=== PATIENT | female | born 1975 | race African-American/Black ===

== ENCOUNTER 2020-09-27 09:01 | Emergency (ER) | payer OTHER ==
[~2020-09-27] VITALS: Ht 172.7 cm; Wt 66.2 kg
[2020-09-27 09:02] VITALS: BP 98/69
== END 2020-09-27 10:21 | disposition home or self-care (01) ==
LOC: ER 09:01
DX: R41.82 Altered mental status, unspecified (principal); F31.9 Bipolar disorder, unspecified